=== PATIENT | female | born 1970 | race Caucasian/White ===

== ENCOUNTER 2017-02-11 16:15 | Outpatient (CLI) | payer MEDICAID ==
[2017-02-11 13:26] LABS: BASOPHILS # (AUTO) 0.1 10^3/uL (0.0-0.1); BASOPHILS % (AUTO) 1.7 %; EOSINOPHILS # (AUTO) 0.2 10^3/uL (0.0-0.7); EOSINOPHILS % (AUTO) 4.5 %; HCT - HEMATOCRIT 37.6 % (37.0-47.0); HGB - HEMOGLOBIN 12.8 g/dL (12.0-16.0); LYMPHOCYTES # (AUTO) 1.8 10^3/uL (1.5-3.5); LYMPHOCYTES % (AUTO) 37.3 %; MEAN CORPUSCULAR VOLUME 76.4 fL (81.0-99.0); MEAN PLATELET VOLUME 8.6 fL (7.9-10.8); MONOCYTES # (AUTO) 0.4 10^3/uL (0.0-1.0); MONOCYTES % (AUTO) 7.5 %; NEUTROPHILS # (AUTO) 2.4 10^3/uL (1.5-6.6); RED BLOOD COUNT 4.92 10^6/uL (4.20-5.40); RED CELL DISTRIBUTION WIDTH 13.9 % (12.0-15.0); UNCORRECTED WHITE BLOOD COUNT 4.9 x10^3/uL; WHITE BLOOD COUNT 4.9 x10^3/uL (4.8-10.8)
[2017-02-11 13:51] LABS: ALBUMIN/GLOBULIN RATIO 1.2 (1.0-2.2); BILIRUBIN,TOTAL 0.6 mg/dL (0.2-1.0); BUN - BLOOD UREA NITROGEN 19 mg/dL (6-20); CALCIUM 9.1 mg/dL (8.5-10.3); CARBON DIOXIDE - CO2 25 mmol/L (21-32); CHLORIDE 107 mmol/L (101-111); CHOL/HDL RATIO 3.7 (<4.4); CHOLESTEROL 202 mg/dL; CREATININE 0.9 mg/dL (0.4-1.0); GFR - MDRD 67 (>89); GLUCOSE 92 mg/dL (70-100); HDL CHOLESTEROL 54 mg/dL; LDL/HDL RATIO 2.3 (<4.4); POTASSIUM 4.3 mmol/L (3.5-5.0); SODIUM 137 mmol/L (135-145); TOTAL PROTEIN 7.1 g/dL (6.7-8.2); TRIGLYCERIDES 116 mg/dL; VLDL CHOLESTEROL 23 mg/dL
[2017-02-12 08:03] LABS: TEST RESULT REPORT (())
== END 2017-02-11 16:16 | disposition home or self-care (01) ==
LOC: LAB.N 16:15
PROVIDERS: ATTEND Family Medicine
DX: I10 Essential (primary) hypertension (principal); Z95.810 Presence of automatic (implantable) cardiac defibrillator; Z83.3 Family history of diabetes mellitus; N64.4 Mastodynia
CPT/HCPCS: 36415; 80053; 80061; 81599; 82306; 84443; 85025

== ENCOUNTER 2017-05-09 10:10 | Outpatient (CLI) | payer MEDICAID ==
[2017-05-09 13:14] LABS: ALBUMIN/GLOBULIN RATIO 1.3 (1.0-2.2); BILIRUBIN,TOTAL 0.5 mg/dL (0.2-1.0); POTASSIUM 4.2 mmol/L (3.5-5.0); TOTAL PROTEIN 7.3 g/dL (6.7-8.2)
[2017-05-09 13:36] LABS: THYROID STIMULATING HORMONE 1.39 uIU/mL (0.34-5.60)
== END 2017-05-09 10:11 | disposition home or self-care (01) ==
LOC: LAB.N 10:10
PROVIDERS: ATTEND Physician Assistant
DX: G45.9 Transient cerebral ischemic attack, unspecified (principal); R94.6 Abnormal results of thyroid function studies; E78.5 Hyperlipidemia, unspecified; E03.9 Hypothyroidism, unspecified
CPT/HCPCS: 36415; 80053; 83735; 84436; 84443

== ENCOUNTER 2018-07-31 09:15 | Outpatient (CLI) | payer SELFPAY | END 2018-07-31 09:16 | disposition short-term general hospital (02) | LOC: EMS 09:15 | PROVIDERS: ATTEND Surgery | DX: R51 Headache (principal); R53.1 Weakness; R20.2 Paresthesia of skin | CPT/HCPCS: A0425; A0427 ==

== ENCOUNTER → 2022-02-19 | Outpatient (CLI) | payer MEDICAID | END | disposition short-term general hospital (02) | LOC: EMS 04:29 | DX: R07.9 Chest pain, unspecified (principal); M54.9 Dorsalgia, unspecified; R42 Dizziness and giddiness; R11.0 Nausea | CPT/HCPCS: A0425; A0427; A0999 ==

== ENCOUNTER 2023-02-24 17:37 | Emergency (ER) | payer MEDICAID ==
[2023-02-24 17:56] VITALS: BP 103/78
[2023-02-24] MEDS ORDERED: cephALEXin 250 MG CAPSULE PO STA (18:03)
--- NOTE | 2023-02-24 18:06 | ED Physician Documentation ---
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 Estradiol 1 each PO DAILY #0 tablet 03/07/15 [Ortho-Novum] Betamethasone/Propylene Glyc 5 gm TP BID #200 gm 02/24/23 [Betamethasone Dp Aug 0.05% Oin] cephALEXin [Keflex] 500 mg PO Q6H #28 cap 02/24/23 - Allergies Allergies/Adverse Reactions: Allergies Allergy/AdvReac Type Severity Reaction Status Date / Time meperidine HCl * Allergy Hives Verified 02/24/23 17:56 [From Demerol] - Social History Does the pt smoke?: No Smoking Status: Never smoker Does the pt drink ETOH?: Yes - Immunizations Immunizations are current?: Yes PD ED PE NORMAL - Vitals Vital signs reviewed: Yes - General General: Alert and oriented X 3, No acute distress - Extremities Extremities: Other (She has a terrible case of foot dermatitis with cracking and heaped up skin on the bottom of both feet, left worse than right. There is a slightly infected laceration on the bottom of the left pinky toe without cellulitis.) - Neuro Neuro: Alert and oriented X 3, Normal speech Results - Vitals Vitals: Vital Signs - 24 hr 02/24/23 17:52 Temperature 36.8 C Heart Rate 65 Respiratory 16 Rate Blood Pressure 103/78 O2 Saturation 97 Oxygen O2 Source Room air Departure - Departure Disposition: 01 Home, Self Care Clinical Impression: Dermatitis of left foot, Open wound of foot Condition: Good Record reviewed to determine appropriate education?: Yes Instructions: ED Dermatitis Atopic Eczema Prescriptions: Betamethasone/Propylene Glyc [Betamethasone Dp Aug 0.05% Oin] 5 gm TP BID #200 gm cephALEXin [Keflex] 500 mg PO Q6H #28 cap Comments: Given the dermatitis you have in the bottom of your feet I think that is what actually created the crack when you just had on the scooter. It is mildly infected so I am prescribing some antibiotics, but also a high potency steroid which you should put on the bottom of your feet and then put socks over at night. Reasonable to follow-up with a personal consultant given this dermatitis as well. 1 option would be ASH[facility] Du[address] [facility] here in [place] Phone number is [phone].
--- OUTSIDE RECORDS SUMMARY | 2023-02-24 18:24 | EXTERNAL MEDICAL SUMMARY RPT | Continuity of Care Document ---
Author Name Unknown Address [address] [place] [id number] Phone Organization [facility] Address [address] [place] [id number] Phone Problems date description facility 2022-12-04 12:13 Other nonspecific abnormal find ing of lung [facility] 2022-12-04 17:16 Other nonspecific abnormal find ing of lung [facility] 2023-01-25 10:53 [facility] 2023-01-25 10:53 Headache, unspecified [facility] 2023-01-25 10:55 [facility] 2023-01-25 10:55 Headache, unspecified [facility] Results/Labs test date author facility value unit interpretation Result panel 1 (unknown) (no date) (unknown) (unknown) (no value) (units unknown) (unknown) (unknown) (no date) (unknown) (unknown) (11/07), previo usly 1.1 cm. Thoracic aorta and central pulmonary arteries are (units unknown) (unknown) (unknown) (no date) (unknown) (unknown) 12/04/22 (units unknown) (unknown) (unknown) (no date) (unknown) (unknown) 1. No acute ai rspace opacity. Resolved pulmonary edema. (units unknown) (unknown) (unknown) (no date) (unknown) (unknown) [address] (un its unknown) (unknown) (unknown) (no date) (unknown) (unknown) 2. No signific ant pulmonary nodules. (units unknown) (unknown) (unknown) (no date) (unknown) (unknown) 3. Mediastinal lymph nodes are decreased. Suspect reactive etiology. (units unknown) (unknown) (unknown) (no date) (unknown) (unknown) Abdomen: Visua lized upper abdominal solid organs and bowel loops appear normal (units unknown) (unknown) (unknown) (no date) (unknown) (unknown) Accession Numb er: [id number] (units unknown) (unknown) (unknown) (no date) (unknown) (unknown) Age/Sex: 52 / F Date of Service: (units unknown) (unknown) (unknown) (no date) (unknown) (unknown) PHILLIP Cole [id number] (units unknown) (unknown) (unknown) (no date) (unknown) (unknown) Approved by: Taty Mitchell M.D. on 12/04/2022 at 13:01 (units unknown) (unknown) (unknown) (no date) (unknown) (unknown) Bones and ches t wall: No suspicious bony lesions. No vertebral body (units unknown) (unknown) (unknown) (no date) (unknown) (unknown) COMPARISON: [facility], CT, CT ANGIO CHEST PE PROTOCOL, 02/19/2022, 6:46. (units unknown) (unknown) (unknown) (no date) (unknown) (unknown) CT Scan Report (unit s unknown) (unknown) (unknown) (no date) (unknown) (unknown) : 9 Acct:[id number] (units unknown) (unknown) (unknown) (no date) (unknown) (unknown) Dictated by: Taty Mitchell M.D. on 12/04/2022 at 12:52 (units unknown) (unknown) (unknown) (no date) (unknown) (unknown) FINDINGS: (units unknown) (unknown) (unknown) (no date) (unknown) (unknown) IMPRESSION: (units unknown) (unknown) (unknown) (no date) (unknown) (unknown) INDICATIONS: O ther nonspecific abnormal finding of lung field (units unknown) (unknown) (unknown) (no date) (unknown) (unknown) Image quality: Excellent. (units unknown) (unknown) (unknown) (no date) (unknown) (unknown) [facility] (uni ts unknown) (unknown) (unknown) (no date) (unknown) (unknown) Loc: CT (units unknown) (unknown) (unknown) (no date) (unknown) (unknown) Lungs and pleu ra: No consolidation. A previously seen subpleural reticular (units unknown) (unknown) (unknown) (no date) (unknown) (unknown) MIP reformats were then acquired. For radiation dose reduction, the following (units unknown) (unknown) (unknown) (no date) (unknown) (unknown) Mediastinum: L eft pacemaker with right atrial and right ventricular leads.Heart (units unknown) (unknown) (unknown) (no date) (unknown) (unknown) Noncontrast 5 mm thick sections acquired from the pulmonary apices to the (units unknown) (unknown) (unknown) (no date) (unknown) (unknown) Ordering Provi dave: Johnny Sinclair MD (units unknown) (unknown) (unknown) (no date) (unknown) (unknown) PROCEDURE: CT CHEST WO CON (units unknown) (unknown) (unknown) (no date) (unknown) (unknown) Patient: Angy Huff (units unknown) (unknown) (unknown) (no date) (unknown) (unknown) Procedure: CT chest wo con (units unknown) (unknown) (unknown) (no date) (unknown) (unknown) R#: [id number] (unit s unknown) (unknown) (unknown) (no date) (unknown) (unknown) Signed (units unknown) (unknown) (unknown) (no date) (unknown) (unknown) TECHNIQUE: (units unknown) (unknown) (unknown) (no date) (unknown) (unknown) absence of contrast. (units unknown) (unknown) (unknown) (no date) (unknown) (unknown) automated expo sure control, adjustment of mA and/or kV according to patient (units unknown) (unknown) (unknown) (no date) (unknown) (unknown) axial (units unknown) (unknown) (unknown) (no date) (unknown) (unknown) caliber. (units unknown) (unknown) (unknown) (no date) (unknown) (unknown) cm, (units unknown) (unknown) (unknown) (no date) (unknown) (unknown) compression (units unknown) (unknown) (unknown) (no date) (unknown) (unknown) costophrenic a ngles. 1 mm lung window, 5 mm thick coronal and sagittal and 7 mm (units unknown) (unknown) (unknown) (no date) (unknown) (unknown) effusions or pneumothorax. Central and peripheral airways are patent and normal (units unknown) (unknown) (unknown) (no date) (unknown) (unknown) fractures. No axillary or supraclavicular adenopathy by size criteria. Thyroid (units unknown) (unknown) (unknown) (no date) (unknown) (unknown) gland is (units unknown) (unknown) (unknown) (no date) (unknown) (unknown) in the (units unknown) (unknown) (unknown) (no date) (unknown) (unknown) in (units unknown) (unknown) (unknown) (no date) (unknown) (unknown) is nearly reso lved. This was likely due to pulmonary edema on the prior CT. No (units unknown) (unknown) (unknown) (no date) (unknown) (unknown) normal in (units unknown) (unknown) (unknown) (no date) (unknown) (unknown) pleural (units unknown) (unknown) (unknown) (no date) (unknown) (unknown) posterior (units unknown) (unknown) (unknown) (no date) (unknown) (unknown) size is (units unknown) (unknown) (unknown) (no date) (unknown) (unknown) size. Esophagu s is normal in caliber. No hiatal hernia. (units unknown) (unknown) (unknown) (no date) (unknown) (unknown) size. (units unknown) (unknown) (unknown) (no date) (unknown) (unknown) thickening (units unknown) (unknown) (unknown) (no date) (unknown) (unknown) unremarkable. (units unknown) (unknown) (unknown) (no date) (unknown) (unknown) was used: (units unknown) (unknown) (unknown) (no date) (unknown) (unknown) within normal limits. No pericardial effusion. Precarinal node measuring 0.9 (units unknown) (unknown) Result panel 2 (unknown) (no date) (unknown) (unknown) (no value) (units unknown) (unknown) (unknown) (no date) (unknown) (unknown) 01/25/23 (units unknown) (unknown) (unknown) (no date) (unknown) (unknown) [address] [place] [address] (un its unknown) (unknown) (unknown) (no date) (unknown) (unknown) Accession Numb er: [id number] (units unknown) (unknown) (unknown) (no date) (unknown) (unknown) Age/Sex: 52 / F Date of Service: (units unknown) (unknown) (unknown) (no date) (unknown) (unknown) PHILLIP Cole [id number] (units unknown) (unknown) (unknown) (no date) (unknown) (unknown) Approved by: Tayo Mahajan M.D. on 01/25/2023 at 16:51 (units unknown) (unknown) (unknown) (no date) (unknown) (unknown) Brain: No midl ine shift. No intracranial masses or hemorrhage. Vigil-white (units unknown) (unknown) (unknown) (no date) (unknown) (unknown) COMPARISON: [facility], CT, HEAD AND NECK ANGIO, 04/21/2017, 12:49. [place] (units unknown) (unknown) (unknown) (no date) (unknown) (unknown) CONTRAST, 04/21, 10:26. (units unknown) (unknown) (unknown) (no date) (unknown) (unknown) CSF spaces: Ba carmen cisterns are patent. No extra-axial fluid collections. (units unknown) (unknown) (unknown) (no date) (unknown) (unknown) CT Scan Report (unit s unknown) (unknown) (unknown) (no date) (unknown) (unknown) : 9 Acct:[id number] (units unknown) (unknown) (unknown) (no date) (unknown) (unknown) Dictated by: Tayo Mahajan M.D. on 01/25/2023 at 16:50 (units unknown) (unknown) (unknown) (no date) (unknown) (unknown) FINDINGS: (units unknown) (unknown) (unknown) (no date) (unknown) (unknown) HEAD WITHOUT (units unknown) (unknown) (unknown) (no date) (unknown) (unknown) Hospital, CT, CT HEAD/BRAIN WO CON, 07/31/2018, 10:01. [facility], CT, (units unknown) (unknown) (unknown) (no date) (unknown) (unknown) IMPRESSION: Noncontrast head CT within normal limits for age, without a cause (units unknown) (unknown) (unknown) (no date) (unknown) (unknown) INDICATIONS: Dizziness and giddiness/headache (units unknown) (unknown) (unknown) (no date) (unknown) (unknown) Image quality: Mild streak artifact can be seen through the skull base. (units unknown) (unknown) (unknown) (no date) (unknown) (unknown) [facility] (uni ts unknown) (unknown) (unknown) (no date) (unknown) (unknown) Loc: CT (units unknown) (unknown) (unknown) (no date) (unknown) (unknown) Noncontrast 4. 5 mm thick angled axial sections acquired from the foramen magnum (units unknown) (unknown) (unknown) (no date) (unknown) (unknown) Ordering Provi dave: Johnny Sinclair MD (units unknown) (unknown) (unknown) (no date) (unknown) (unknown) PROCEDURE: CT HEAD/BRAIN WO CON (units unknown) (unknown) (unknown) (no date) (unknown) (unknown) Patient: Angy Huff (units unknown) (unknown) (unknown) (no date) (unknown) (unknown) Procedure: CT head/brain wo con (units unknown) (unknown) (unknown) (no date) (unknown) (unknown) R#: [id number] (unit s unknown) (unknown) (unknown) (no date) (unknown) (unknown) Signed (units unknown) (unknown) (unknown) (no date) (unknown) (unknown) Sinuses: Visua lized sinuses and mastoids are clear. (units unknown) (unknown) (unknown) (no date) (unknown) (unknown) Skull and face : Calvarium and visualized facial bones are intact, without (units unknown) (unknown) (unknown) (no date) (unknown) (unknown) TECHNIQUE: (units unknown) (unknown) (unknown) (no date) (unknown) (unknown) Ventricles (units unknown) (unknown) (unknown) (no date) (unknown) (unknown) are normal in size and shape. (units unknown) (unknown) (unknown) (no date) (unknown) (unknown) following (units unknown) (unknown) (unknown) (no date) (unknown) (unknown) interface is normal. (units unknown) (unknown) (unknown) (no date) (unknown) (unknown) lesions. (units unknown) (unknown) (unknown) (no date) (unknown) (unknown) matter (units unknown) (unknown) (unknown) (no date) (unknown) (unknown) of the (units unknown) (unknown) (unknown) (no date) (unknown) (unknown) patient (units unknown) (unknown) (unknown) (no date) (unknown) (unknown) patient's pres enting history identified. (units unknown) (unknown) (unknown) (no date) (unknown) (unknown) size. (units unknown) (unknown) (unknown) (no date) (unknown) (unknown) suspicious (units unknown) (unknown) (unknown) (no date) (unknown) (unknown) to the (units unknown) (unknown) (unknown) (no date) (unknown) (unknown) vertex, with c oronal and sagittal reformats. For radiation dose reduction, the (units unknown) (unknown) (unknown) (no date) (unknown) (unknown) was used: auto mated exposure control, adjustment of mA and/or kV according to (units unknown) (unknown)
== END 2023-02-24 18:23 | disposition home or self-care (01) ==
LOC: ED 17:37
DX: S91.309A Unspecified open wound, unspecified foot, initial encounter (principal); W22.8XXA Striking against or struck by other objects, initial encounter; L30.9 Dermatitis, unspecified; I10 Essential (primary) hypertension; E03.9 Hypothyroidism, unspecified; Z79.899 Other long term (current) drug therapy
CPT/HCPCS: 99282; 99283; A9270

== ENCOUNTER 2023-04-19 16:15 | Outpatient (CLI) | payer MEDICAID | END 2023-04-19 23:59 | disposition short-term general hospital (02) | LOC: EMS 16:15 | DX: S09.90XA Unspecified injury of head, initial encounter (principal); R51.9 Headache, unspecified; R45.89 Other symptoms and signs involving emotional state; W18.30XA Fall on same level, unspecified, initial encounter; Y93.01 Activity, walking, marching and hiking; Y92.9 Unspecified place or not applicable; F10.90 Alcohol use, unspecified, uncomplicated | CPT/HCPCS: A0425; A0429; A0999 ==

== ENCOUNTER 2023-10-26 14:47 | Outpatient (CLI) | payer MEDICAID | END 2023-10-26 14:48 | disposition left against medical advice (07) | LOC: EMS 14:47 | DX: R51.9 Headache, unspecified (principal); W01.198A Fall on same level from slipping, tripping and stumbling with subsequent striking against other object, initial encounter; Y92.012 Bathroom of single-family (private) house as the place of occurrence of the external cause; F10.90 Alcohol use, unspecified, uncomplicated ==

== ENCOUNTER 2023-11-18 06:56 | Outpatient (CLI) | payer MEDICAID | END 2023-11-18 23:59 | disposition short-term general hospital (02) | LOC: EMS 06:56 | DX: R51.9 Headache, unspecified (principal); R07.89 Other chest pain; R05.9 Cough, unspecified; R20.2 Paresthesia of skin; R20.0 Anesthesia of skin; R42 Dizziness and giddiness | CPT/HCPCS: A0425; A0429; A0999 ==

== ENCOUNTER 2024-01-23 05:59 | Outpatient (CLI) | payer MEDICAID | END 2024-01-23 23:59 | disposition short-term general hospital (02) | LOC: EMS 05:59 | DX: R56.9 Unspecified convulsions (principal); R50.9 Fever, unspecified; Z99.81 Dependence on supplemental oxygen | CPT/HCPCS: A0425; A0427; A0999 ==

== ENCOUNTER 2024-03-06 04:49 | Outpatient (CLI) | payer MEDICAID | END 2024-03-06 23:59 | disposition critical access hospital (66) | LOC: EMS 04:49 | PROVIDERS: ATTEND Emergency Medicine | DX: R53.1 Weakness (principal); R50.9 Fever, unspecified; R41.0 Disorientation, unspecified; R23.1 Pallor | CPT/HCPCS: A0425; A0429; A0999 ==

== ENCOUNTER 2024-03-06 05:09 | Emergency (ER) | payer MEDICAID ==
--- NOTE | 2024-03-06 05:16 | ED Physician Documentation ---
History of Present Illness - Stated complaint Stated Complaint: WEAKNESS, FEVER - History obtained from History obtained from: Patient, EMS - Additonal information Additional information: BIBA. HPI from patient as well as EMS. Patient complains of generalized weakness over the past several days, gradual onset without inciting event and steadily worsening. Tonight, patient was on the toilet at home and was too weak to support herself; she thus slowly slid off the toilet onto the floor and was too weak to get back up off the floor. Thus, significant other called 911. EMS reports FSBS 124,temperature of 100.9, heart rate 120 (sinus tachycardia), and pulse ox on room air of 90% which improved to 95% with 4 L nasal cannula oxygen. Patient says she was in ED yesterday but left without being seen due to long wait (patient says she waited 8 hours). Patient also reports tachypnea with respiratory rate as high as 50/min, significant improvement after placement of the 4 L nasal cannula oxygen. When asked patient why she is breathing so rapidly, the patient said she had been chasing some children around the room which she believed were still there despite EMS not seeing any children there (thus concern that she is hallucinati ng, as well). 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 Estradiol 1 each PO DAILY #0 tablet 03/07/15 [Ortho-Novum] Betamethasone/Propylene Glyc 5 gm TP BID #200 gm 02/24/23 [Betamethasone Dp Aug 0.05% Oin] cephALEXin [Keflex] 500 mg PO Q6H #28 cap 02/24/23 Ondansetron Odt [Zofran] 4 mg TL Q6H PRN #10 tablet 03/06/24 cephALEXin [Keflex] 500 mg PO TID #20 cap 03/06/24 - Allergies Allergies/Adverse Reactions: Allergies Allergy/AdvReac Type Severity Reaction Status Date / Time meperidine HCl * Allergy Hives Verified 03/06/24 05:20 [From Demerol] - Social History Does the pt smoke?: No Smoking Status: Never smoker Does the pt drink ETOH?: Yes - Immunizations Immunizations are current?: Yes PD ED PE NORMAL - Vitals Vital signs reviewed: Yes - General General: Alert and oriented X 3, No acute distress, Well developed/nourished - Cardiac Cardiac: No murmur - Respiratory Respiratory: No respiratory distress, Clear bilaterally - Abdomen Abdomen: Soft, Non tender, Non distended - Derm Derm: Normal color, Warm and dry - Neuro Neuro: Alert and oriented X 3, Other (generalized weakness noted, manifest as inability for her to pull herself to sitting position (both alone as well as with help from myself and s.o.)) Eye Opening: Spontaneous Motor: Obeys Commands Verbal: Oriented GCS Score: 15 PD ED PE EXPANDED - Cardiac Cardiac: Tachy, Regular Rhythm Results - Vitals Vitals: Vital Signs - 24 hr 03/06/24 03/06/24 03/06/24 05:11 05:30 06:44 Temperature 37.3 C 36.9 C Heart Rate 110 H 103 H 98 Respiratory 18 20 18 Rate Blood Pressure 105/68 113/64 100/69 O2 Saturation 95 94 96 If not protocol 1 : Oxygen Flow, liters/minute 03/06/24 08:00 Temperature Heart Rate 95 Respiratory 16 Rate Blood Pressure 104/76 O2 Saturation 97 If not protocol 1 : Oxygen Flow, liters/minute Oxygen O2 Source Nasal cannula - Labs Labs: Laboratory Tests 03/06/24 03/06/24 03/06/24 05:30 05:58 05:58 WBC 13.9 H RBC 4.03 L Hgb 10.0 L Hct 31.3 L MCV 77.7 L MCH 24.8 L MCHC 31.9 L RDW 14.3 Plt Count 133 MPV 10.1 Neut # (Auto) Not Reportable Lymph # (Auto) Not Reportable [place] # (Auto) Not Reportable Eos # (Auto) Not Reportable Baso # (Auto) Not Reportable Absolute Nucleated RBC Not Reportable Total Counted 100 Band Neuts % (Manual) 0 Reactive Lymphs % (Man) 1 Abnorm Lymph % (Manual) 0 Nucleated RBC % Not Reportable Neutrophils # (Manual) 12.0 H Lymphocytes # (Manual) 1.0 L Monocytes # (Manual) 1.0 Eosinophils # (Manual) 0.0 Basophils # (Manual) 0.0 Differential Comment MANUAL DIFFERENTIAL Platelet Estimate NORMAL (130-450,000) Platelet Morphology NORMAL APPEARANCE Sodium Potassium Chloride Carbon Dioxide Anion Gap BUN Creatinine Estimated GFR (MDRD) Glucose Lactic Acid 1.1 Calcium Magnesium Total Bilirubin AST ALT Alkaline Phosphatase Total Protein Albumin Globulin Albumin/Globulin Ratio Lipase Urine Color Urine Clarity Urine pH Ur Specific [place] Urine Protein Urine Glucose (UA) Urine Ketones Urine Occult Blood Urine Nitrite Urine Bilirubin Urine Urobilinogen Ur Leukocyte Esterase Urine RBC Urine WBC Ur Squamous Epith Cells Urine Bacteria Urine Casts Ur Microscopic Review Urine Culture Comments Nasal Adenovirus (PCR) NOT DETECTED Nasal B. parapertussis DNA (PCR) NOT DETECTED Nasal Coronavir 229E PCR NOT DETECTED Nasal Coronavir HKU1 PCR NOT DETECTED Nasal Coronavir NL63 PCR NOT DETECTED Nasal Coronavir OC43 PCR NOT DETECTED Nasal Enterovir/Rhinovir PCR NOT DETECTED Nasal Influenza B PCR NOT DETECTED Nasal Influenza A PCR NOT DETECTED Nasal Parainfluen 1 PCR NOT DETECTED Nasal Parainfluen 2 PCR NOT DETECTED Nasal Parainfluen 3 PCR NOT DETECTED Nasal Parainfluen 4 PCR NOT DETECTED Nasal RSV (PCR) NOT DETECTED Nasal B.pertussis DNA PCR NOT DETECTED Nasal C.pneumoniae (PCR) NOT DETECTED Rene Human Metapneumo PCR NOT DETECTED Nasal M.pneumoniae (PCR) NOT DETECTED Nasal SARS-CoV-2 (PCR) NOT DETECTED 03/06/24 03/06/24 03/06/24 06:40 06:40 09:30 WBC RBC Hgb Hct MCV MCH MCHC RDW Plt Count MPV Neut # (Auto) Lymph # (Auto) [place] # (Auto) Eos # (Auto) Baso # (Auto) Absolute Nucleated RBC Total Counted Band Neuts % (Manual) Reactive Lymphs % (Man) Abnorm Lymph % (Manual) Nucleated RBC % Neutrophils # (Manual) Lymphocytes # (Manual) Monocytes # (Manual) Eosinophils # (Manual) Basophils # (Manual) Differential Comment Platelet Estimate Platelet Morphology Sodium 127 L Potassium 3.8 Chloride 99 L Carbon Dioxide 20 L Anion Gap 8.0 BUN 24 H Creatinine 1.1 Estimated GFR (MDRD) 52 L Glucose 104 Lactic Acid Calcium 8.9 Magnesium 1.5 L Total Bilirubin 0.6 AST 33 ALT 45 Alkaline Phosphatase 94 Total Protein 6.0 L Albumin 3.3 Globulin 2.7 Albumin/Globulin Ratio 1.2 Lipase < 10 L Urine Color YELLOW Urine Clarity SL. CLOUDY Urine pH 6.0 Ur Specific [place] 1.010 Urine Protein NEGATIVE Urine Glucose (UA) NEGATIVE Urine Ketones NEGATIVE Urine Occult Blood MODERATE H Urine Nitrite POSITIVE H Urine Bilirubin NEGATIVE Urine Urobilinogen 0.2 (NORMAL) Ur Leukocyte Esterase SMALL H Urine RBC 11-25 H Urine WBC >25 H Ur Squamous Epith Cells FEW Squamous Urine Bacteria Many H Urine Casts 0-2 Fine Granular Ur Microscopic Review INDICATED Urine Culture Comments INDICATED Nasal Adenovirus (PCR) Nasal B. parapertussis DNA (PCR) Nasal Coronavir 229E PCR Nasal Coronavir HKU1 PCR Nasal Coronavir NL63 PCR Nasal Coronavir OC43 PCR Nasal Enterovir/Rhinovir PCR Nasal Influenza B PCR Nasal Influenza A PCR Nasal Parainfluen 1 PCR Nasal Parainfluen 2 PCR Nasal Parainfluen 3 PCR Nasal Parainfluen 4 PCR Nasal RSV (PCR) Nasal B.pertussis DNA PCR Nasal C.pneumoniae (PCR) Rene Human Metapneumo PCR Nasal M.pneumoniae (PCR) Nasal SARS-CoV-2 (PCR) - Rads (name of study) CXR Relevant Findings:: Prelim report reviewed, See rad report PD Medical Decision Making - ED course Complexity details: reviewed old records (Records from 01/23/24 ED visit requested, faxed to this ED and reviewed by me (indicate right-sided pneumonia, rx levaquin)), reviewed results, re-evaluated patient, considered differential, d/w patient ED course: Test results not completed by the end of my shift and thus care of patient turned over to oncoming ED physician (Dr. Ambrocio). Departure - Departure Disposition: 01 Home, Self Care Clinical Impression: Weakness, UTI (urinary tract infection), Nausea and vomiting, Fever, Electrolyte abnormality Condition: Stable Prescriptions: cephALEXin [Keflex] 500 mg PO TID #20 cap Ondansetron Odt [Zofran] 4 mg TL Q6H PRN #10 tablet PRN Reason: Nausea / Vomiting Comments: Your urine does show signs of infection. Presume this is a source of your fe vers and weakness and nausea. I would anticipate improvement however in the next 2 to 3 days with antibiotics. Also take Tylenol every 4-6 hours if needed for fevers or pains. Zofran/ondansetron if needed for nausea. Maintain good hydration and perhaps use some electrolyte fluids as your sodium and magnesium were both a little bit low. This could have been just delusional from drinking water. Hydrating with water is good but having some electrolytes added and is also good. I sent your prescriptions to your preferred pharmacy. Cephalexin antibiotic 3 times daily for the next week. Recheck if not improving well over the next few days. Forms: PCP List
[2024-03-06] MEDS: ACETAMINOPHEN 325 MG TABLET PO STA (05:41)
[2024-03-06 06:14] LABS: BASOPHILS % (AUTO) 0.4 %; HCT - HEMATOCRIT 31.3 % (37.0-47.0); LYMPHOCYTES % (AUTO) 3.7 %; MEAN CORPUSCULAR HEMOGLOBIN 24.8 pg (27.0-31.0); MEAN CORPUSCULAR HGB CONC 31.9 g/dL (32.0-36.0); MEAN CORPUSCULAR VOLUME 77.7 fL (81.0-99.0); MEAN PLATELET VOLUME 10.1 fL (7.9-10.8); MONOCYTES % (AUTO) 3.9 %; NEUTROPHILS % (AUTO) 85.6 %; PLT - PLATELET COUNT 133 10^3/uL (130-450); RED BLOOD COUNT 4.03 10^6/uL (4.20-5.40); RED CELL DISTRIBUTION WIDTH 14.3 % (12.0-15.0); WHITE BLOOD COUNT 13.9 x10^3/uL (4.8-10.8)
[2024-03-06 07:04] LABS: B. PARAPERTUSSIS- RESP PCR PAN NOT DETECTED; B. PERTUSSIS- RESP PCR PANEL NOT DETECTED; C. PNEUMONIAE- RESP PCR PANEL NOT DETECTED; CORONAVIRUS 229E-RESP PCR NOT DETECTED; CORONAVIRUS HKU1-RESP PCR NOT DETECTED; CORONAVIRUS NL63-RESP PCR NOT DETECTED; CORONAVIRUS OC43-RESP PCR NOT DETECTED; HUMAN METAPNEUMOVIRUS NOT DETECTED; INFLUENZA A- RESP PCR PANEL NOT DETECTED; INFLUENZA B - RESP PCR PANEL NOT DETECTED; M. PNEUMONIAE- RESP PCR PANEL NOT DETECTED; PARAINFLUENZA VIRUS 1 NOT DETECTED; PARAINFLUENZA VIRUS 2 NOT DETECTED; PARAINFLUENZA VIRUS 3 NOT DETECTED; PARAINFLUENZA VIRUS 4 NOT DETECTED; RHINOVIRUS/ENTEROVIRUS NOT DETECTED; RSV- RESP PCR PANEL NOT DETECTED; SARS-CoV-2 -RESP PCR PANEL NOT DETECTED
[2024-03-06 07:04] LABS: ALBUMIN 3.3 g/dL (3.2-5.5); ALBUMIN/GLOBULIN RATIO 1.2 (1.0-2.2); ALKALINE PHOSPHATASE 94 IU/L (42-121); ALT ALANINE AMINOTRANSFERASE 45 IU/L (10-60); AST ASPARTATE AMINOTRANSFERASE 33 IU/L (10-42); BILIRUBIN,TOTAL 0.6 mg/dL (0.2-1.0); BUN - BLOOD UREA NITROGEN 24 mg/dL (6-20); CALCIUM 8.9 mg/dL (8.5-10.3); CARBON DIOXIDE - CO2 20 mmol/L (21-32); CHLORIDE 99 mmol/L (101-111); CREATININE 1.1 mg/dL (0.6-1.3); GFR - MDRD 52 (>89); GLUCOSE 104 mg/dL (74-104); LIPASE < 10 U/L (11-82); POTASSIUM 3.8 mmol/L (3.5-4.5); SODIUM 127 mmol/L (135-145)
[2024-03-06 07:07] LABS: ABNORMAL LYMPHS % (MANUAL) 0 %; BAND NEUTROPHILS % (MANUAL) 0 %
[2024-03-06 07:29] LABS: LYMPHOCYTES % (MANUAL) 6 %; REACTIVE LYMPHS % (MANUAL) 1 %
[2024-03-06 07:30] LABS: DIFFERENTIAL COMMENT MANUAL DIFFERENTIAL; PLATELET ESTIMATE, MANUAL NORMAL (130-450,000) (NORMAL); PLATELET MORPHOLOGY NORMAL APPEARANCE (NORMAL)
--- NOTE | 2024-03-06 08:02 | XRAY Report ---
PROCEDURE: Chest 1V INDICATIONS: dyspnea, fever TECHNIQUE: One view of the chest was acquired. COMPARISON: None. FINDINGS: Surgical changes and devices: Left chest wall generator dual chamber fibrillator leads. Lungs and pleura: Mildly prominent interstitium. Prominent hilar vasculature. Low lung volumes. Mediastinum: Borderline cardiomegaly. Bones and chest wall: Unremarkable IMPRESSION: Low lung volumes. Prominent interstitium and perihilar structures possibly edema versus atypical infe ction. Consider future imaging surveillance to assess for resolution. No significant discrepancy from the preliminary report. Reviewed by: Shaheed Beebe MD on 03/06/2024 8:01 AM PDT Approved by: Shaheed Beebe MD on 03/06/2024 8:01 AM PDT Station ID: [id number]
[2024-03-06] MEDS: SODIUM CHLORIDE 0.9% 1,000 ML IV STA (08:57)
[2024-03-06 09:46] LABS: BILIRUBIN,URINE NEGATIVE (NEGATIVE); GLUCOSE, URINE (UA) NEGATIVE (NEGATIVE); KETONES,URINE (UA) NEGATIVE (NEGATIVE); LEUKOCYTE ESTERASE, URINE SMALL (NEGATIVE); NITRITE,URINE POSITIVE (NEGATIVE); OCCULT BLOOD,URINE MODERATE (NEGATIVE); PROTEIN,URINE NEGATIVE (NEGATIVE); UROBILINOGEN,URINE 0.2 (NORMAL) E.U./dL (NORMAL)
[2024-03-06 09:58] LABS: CLARITY,URINE SL. CLOUDY (CLEAR)
[2024-03-06 09:59] LABS: BACTERIA,URINE Many /HPF (None Seen); SQUAMOUS EPITHELIAL CELL,UR FEW Squamous (<= Few); WBC,URINE >25 /HPF (0-5)
[2024-03-06 10:00] LABS: CASTS, URINE 0-2 Fine Granular /LPF
--- NOTE | 2024-03-06 10:10 | ED Physician Documentation ---
ED Addendum - Addendum Addendum: 03/06/24 10:08 Some delay in time waiting for urine sample. We are hoping not to do a catheter per se. She missed the urine hat on the toilet first go around. She had been given IV fluids for the moderately low sodium so did have to have another urine output. We were able to collect this sample. It does show signs of infection with positive nitrites and leukocytes. We would presume this to be the source of infection for her fevers and nausea. Talking with her just now, she is feeling much better with some IV fluids. She would prefer going home and feels adequately strong for that. She did make it to the bathroom. She was given Rocephin IV here to initiate the dose given her moderate illness. She will be prescribed cephalexin and ondansetron. Disposition: Patient discharged home in stable condition. Diagnoses: General weakness 2. Fever 3. UTI 4. Hyponatremia 5. Nausea and vomiting
[2024-03-06] MEDS: MAGNESIUM OXIDE 400 MG TABLET PO STA (10:27)
[2024-03-06] MEDS: cefTRIAXone 1 GM VIAL IVP STA (10:27)
[2024-03-06] MEDS: ONDANSETRON 4 MG/2 ML VIAL IVP STA (10:28)
[2024-03-06 10:39] VITALS: BP 109/74; O2SAT 93
--- NOTE | 2024-03-08 13:13 | ED Physician Documentation ---
ED Addendum - Addendum Addendum: 03/08/24 13:13 Urine culture shows E. coli, resistant to cefazolin, presume resistant to cephalexin. Will change to cefpodoxime. New prescription was sent. Departure - Departure Disposition: 01 Home, Self Care Clinical Impression: Weakness, UTI (urinary tract infection), Nausea and vomiting, Fever, Electrolyte abnormality Condition: Stable Prescriptions: cephALEXin [Keflex] 500 mg PO TID #20 cap Cefpodoxime Proxetil [Vantin] 100 mg PO Q12H #14 tablet Ondansetron Odt [Zofran] 4 mg TL Q6H PRN #10 tablet PRN Reason: Nausea / Vomiting Comments: Your urine does show signs of infection. Presume this is a source of your fevers and weakness and nausea. I would anticipate improvement however in the next 2 to 3 days with antibiotics. Also take Tylenol every 4-6 hours if needed for fevers or pains. Zofran/ondansetron if needed for nausea. Maintain good hydration and perhaps use some electrolyte fluids as your sodium and magnesium were both a little bit low. This could have been just delusional from drinking water. Hydrating with water is good but having some electrolytes added and is also good. I sent your prescriptions to your preferred pharmacy. Cephalexin antibiotic 3 times daily for the next week. Recheck if not improving well over the next few days. Forms: PCP List Discharge Date/Time: 03/06/24 10:42
== END 2024-03-06 10:42 | disposition home or self-care (01) ==
LOC: ED 05:09
DX: N39.0 Urinary tract infection, site not specified (principal); E87.1 Hypo-osmolality and hyponatremia; R06.00 Dyspnea, unspecified; I10 Essential (primary) hypertension; Z20.818 Contact with and (suspected) exposure to other bacterial communicable diseases; Z20.822 Contact with and (suspected) exposure to COVID-19; Z20.828 Contact with and (suspected) exposure to other viral communicable diseases
CPT/HCPCS: 36415; 71045; 80053; 81001; 83605; 83690; 83735; 85025; 87086; 87181; 87633; 96361; 96374; 96375; 99284; A9270; 81003